=== PATIENT | female | born 1990 | race Two or more races ===

== ENCOUNTER 2019-08-04 12:00 | Emergency (ER) | payer MEDICARE, MEDICAID ==
[~2019-08-04] VITALS: Ht 154.9 cm; Wt 78.9 kg
[2019-08-04 13:35] VITALS: BP 129/90
[2019-08-04 13:47] LABS: Urine Bacteria FEW /hpf (None Seen); Urine Blood 1+ /uL (Negative); Urine Mucus FEW (None Seen); Urine Specific Gravity 1.023 (1.001-1.035); Urine WBC 51 /hpf (0 - 5)
== END 2019-08-04 14:25 | disposition home or self-care (01) ==
LOC: ER 12:00
DX: N39.0 Urinary tract infection, site not specified (principal); N76.0 Acute vaginitis; J45.909 Unspecified asthma, uncomplicated
CPT/HCPCS: 81001; 81025; 87210